=== PATIENT | female | born 1955 | race Caucasian/White ===

== ENCOUNTER → 2020-06-10 10:45 | Outpatient (CLI) | payer OTHER, SELFPAY ==
--- NOTE | ~2020-06-10 | XR_ITS ---
EXAMINATION: XR knee LT min 4V DATE: 06/10/2020 11:00 INDICATION: Left knee pain. TECHNIQUE: 4 views of left knee were obtained. COMPARISON: Left knee radiographs 08/28/2015 FINDINGS: Bone alignment is normal. No fracture. There is moderate osteoarthritis of medial and sahni lofemoral compartments and mild osteoarthritis of lateral compartment. No knee joint effusion. IMPRESSION: 1. Moderate left knee osteoarthritis. Reviewed, dictated and finalized at location A. ING MACHINE OPERATOR
--- NOTE | ~2020-06-10 | XR_ITS ---
EXAMINATION: XR knee RT min 4V DATE: 06/10/2020 11:00 INDICATION: Right knee pain. TECHNIQUE: 4 views of right knee were obtained. COMPARISON: Right knee radiographs 03/12/2014 FINDINGS: There is varus angulation at the knee. No fracture. There is severe osteoarthritis of media l and patellofemoral compartments and mild osteoarthritis of lateral compartment. There is a small kn ee joint effusion. IMPRESSION: 1. Severe right knee osteoarthritis. 2. Small right knee joint effusion. Reviewed, dictated and finalized at location A. TECHNIC REGISTRAR
== END ==
PROVIDERS: PCP Family Medicine; Visit Provider Physician Assistant
DX: M17.0 Bilateral primary osteoarthritis of knee (principal); M25.461 Effusion, right knee
CPT/HCPCS: 73564

== ENCOUNTER 2022-04-02 20:59 | Emergency (ER) | payer MEDICARE, OTHER, SELFPAY ==
--- NOTE | ~2022-04-02 | XR_ITS ---
EXAMINATION: XR wrist RT min 3V DATE: 04/02/2022 21:56 INDICATION: Right wrist pain post fall TECHNIQUE: Posteroanterior, ulnar deviation, oblique, and lateral views of the right wrist were obtai jason. COMPARISON: none FINDINGS: Comminuted fractures at the distal right radius with dorsal impaction resulting in 15 degrees dorsal tilt of the distal articular surface. There is suggestion of intra-articular extension with likely sm all fracture fragment projecting over the junction of the joint space at the and radiocarpal and scap holunate articulations. No evident fracture gap or incongruity at the distal radial articular surface . Minimally displaced fracture across the base of the ulnar styloid process. Severe osteoarthritis at the first carpometacarpal joint. Mild osteoarthritis at the triscaphe joint. Moderate osteoarthritis at several of the visualized interphalangeal joints. IMPRESSION: 1. Dorsal impaction of a comminuted likely intra-articular fracture of the distal right radius. 2. Minimally displaced ulnar styloid avulsion fracture. 3. 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 Reviewed, dictated and finalized at location A. ELER HEAD IMPRESSION: 1. Dorsal impaction of a comminuted likely intra-articular fracture of the dist al right radius. 2. Minimally displaced ulnar styloid avulsion fracture. 3. 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
[2022-04-02 21:08] VITALS: BP 161/85; PULSE 95; RESP 22; TEMP 37; O2SAT 97
[2022-04-02 23:26] VITALS: BP 142/75; PULSE 86; RESP 16; O2SAT 98
--- NOTE | 2022-04-03 06:40 | ED.GENADULT ---
HPI - General Adult General Chief complaint: Extremity Injury, Upper Stated complaint: right wrist pain, fall Time Seen by Provider: 04/03/22 06:26 History of Present Illness HPI narrative: 66-year-old female presenting to the emergency department for evaluation of an injury to her right wrist. Patient reports she was attempting to get sugar out of the cupboard when she fell and injured her right wrist. Patient does complain of pain of the right wrist but denies any other pain or injury. Patient states she did not strike her head denies any loss of consciousness. Related Data Home Medications Medication Instructions Recorded Confirmed Bifidobacterium infantis 4 mg 4 mg PO DAILY 02/18/19 07/09/21 capsule (Align) cetirizine 10 mg tablet (Zyrtec) 10 mg PO DAILY PRN 07/30/20 07/09/21 cholecalciferol (vitamin D3) 50 50 mcg PO BID 07/30/20 07/09/21 mcg (2,000 unit) tablet zinc sulfate 25 mg zinc (110 mg) 25 mg PO DAILY 07/30/20 07/09/21 tablet Allergies Allergy/AdvReac Type Severity Reaction Status Date / Time PROCHLORPERAZINE EDISYLATE Allergy Unknown Migraine Uncoded 04/03/22 06:44 Review of Systems Review of Systems: CONSTITUTIONAL: Denies fever, chills, or sweats. EYES: Denies visual changes, redness, or discharge. ENT: Denies rhinorrhea, congestion, sore throat, or otalgia. CARDIOVASCULAR: Denies chest pain, palpitations, or edema. RESPIRATORY: Denies cough or dyspnea. GASTROINTESTINAL: Denies abdominal pain, nausea, vomiting, or diarrhea. GENITOURINARY: Denies dysuria or hematuria. SKIN: Denies rash or itching. MUSCULOSKELETAL: Right wrist pain NEUROLOGIC: Denies headache, numbness, or weakness. [facility] Past Medical History Medical History C. difficile colitis Hepatitis C antibody test negative (08/18/18) Kidney stone (~1989) Kidney stone (~2008) Prediabetes Uterine polyp Surgical History Surgical History History of breast augmentation (~1983) History of colonoscopy (~04/20/09) Family History Family History Grandparent Diabetes mellitus Cerebrovascular accident Family history of lung cancer Family history of malignant neoplasm of ovary Father Hypertension Family history of coronary artery disease Social History Social History Second hand tobacco smoke exposure: No Alcohol intake: never Exam Narrative: APPEARANCE: Well appearing, no pain, no distress, well-nourished. HEAD: normocephalic, atraumatic. EYES: PERRLA/EOMI, conjunctivae clear. NOSE: Normal no drainage NECK: Supple. No adenopathy, no masses. RESPIRATORY: Airway patent, respirations nonlabored. Clear to auscultation bilaterally, no rales, rhonchi, wheezing. CARDIOVASCULAR: Regular rate and rhythm without murmurs rubs or gallops. ABDOMINAL: Soft, nontender, nondistended, normal bowel sounds MUSCULOSKELETAL: Right wrist tenderness to palpation. Neurovascular intact. Normal cap refill. NEURO: Alert. Cranial nerves II through XII intact. SKIN: Warm, dry. Normal Color Course Course Emergency Course: Patient was placed in a short arm splint for the distal radius fracture. Patient was encouraged of close follow-up with orthopedics. All question concerns were addressed. Patient was provided pain medication the emergency department was also provided pain medication for home. Vital Signs Vital signs: Vital Signs Temperature 98.6 F 04/02/22 21:08 Pulse Rate 95 04/02/22 21:08 Respiratory Rate 22 H 04/02/22 21:08 Blood Pressure 161/85 H 04/02/22 21:08 Pulse Oximetry 97 04/02/22 21:08 Temperature 98.6 F 04/02/22 21:08 Pulse Rate 86 04/02/22 23:26 Respiratory Rate 16 04/02/22 23:26 Blood Pressure 142/75 H 04/02/22 23:26 Pulse Oximetry 98 04/02/22 23:26 Medical Decision
[2022-04-03] MEDS: HYDROcodone/acetaminophen (*CRX) 5-325 MG TABLET 1 TAB PO (06:44)
[2022-04-03] MEDS: KETOROLAC 30 MG/ML VIAL (*BKC) IM (06:44)
== END 2022-04-03 07:36 | disposition home or self-care (01) ==
PROVIDERS: Emergency Provider Emergency Medicine; PCP Family Medicine
DX: S52.591A Other fractures of lower end of right radius, initial encounter for closed fracture (principal); S52.611A Displaced fracture of right ulna styloid process, initial encounter for closed fracture; Z87.442 Personal history of urinary calculi; R73.03 Prediabetes; M18.9 Osteoarthritis of first carpometacarpal joint, unspecified; M19.041 Primary osteoarthritis, right hand; W19.XXXA Unspecified fall, initial encounter
CPT/HCPCS: 29125; 73110; 96372; 99283; 99284; A9270; J1885

== ENCOUNTER 2022-04-06 09:44 | Outpatient (CLI) | payer MEDICARE, OTHER, SELFPAY ==
--- NOTE | 2022-04-06 09:58 | ECG_ITS ---
Measurements Intervals [place] Rate: 77 P: 24 ND: 169 QRS: 12 QRSD: 104 T: 1 QT: 401 QTc: 454 Interpretive Statements SINUS RHYTHM NO PREVIOUS ECG AVAILABLE FOR COMPARISON Electronically Signed On 04-06-2022 13:24:12 TURBINE ENGINE ASSEMBLER by Kilo Jimenez M.D.
[2022-04-06 10:54] LABS: Anion Gap 7 mmol/L (8-16); Blood Urea Nitrogen 18 mg/dL (7-17); Calcium 8.7 mg/dL (8.4-10.2); Carbon Dioxide 27 mmol/L (22-30); Chloride 104 mmol/L (98-107); Estimated Glomerular Filt Rate > 60; Glucose 103 mg/dL (65-110); Potassium 3.7 mmol/L (3.4-5.0); Sodium 138 mmol/L (137-145)
== END 2022-04-06 09:45 | disposition home or self-care (01) ==
PROVIDERS: Anesthesiology; PCP Family Medicine; Visit Provider Orthopaedic Surgery
DX: I10 Essential (primary) hypertension (principal); Z01.818 Encounter for other preprocedural examination
CPT/HCPCS: 36415; 80048; 93005

== ENCOUNTER 2022-04-08 01:47 | Day surgery (SDC) | payer MEDICARE, OTHER, SELFPAY ==
--- NOTE | 2022-04-05 13:39 | PC.NURSE ---
Report to the Outpatient Waiting Room, entrance under the green pavilion located off [facility], at time __729 on date 04/08/22 . Planned Procedure Time: __929 . Time changes happen often and if your time is changed the preop area will call you the afternoon before. - You and your visitor will be asked to self-screen and do not enter if you have any COVID symptoms. - Only one visitor is requested with a max of two and NO children visitors are allowed at this time. - The patient visitor may be requested to leave or wait in car when not with patient due to distancing restrictions. - A mask is optional within the hospital. Patients may have clear liquids (water, carbonated beverages, clear teas, apple juice) until 3 hours prior to surgery with a maximum of 20 ounces. - No food from midnight until time of surgery - Infants may have breast milk until 4 hours before surgery, infant formula 6 hours prior to surgery. - Children will be allowed to drink immediately following surgery. If applicable, please bring a bottle or sippy cup to assist with drinking. Juice, water, soda, and popsicles are readily available. For infants on formula, please bring formula the day of surgery. Pacifiers are allowed. Take the following medications with a SIP of water the morning of surgery: __AMLODIPINE Medications to discontinue per physician ____ALL VITAMINS AND SUPPLEMENTS 3 DAYS PRE OP LAST DOSE WAS 04/05/22 Please no make-up, nail latvian, hairspray, perfume, deodorant, or body powder the day of surgery. No jewelry (including any body piercings) or valuables the day of surgery, leave them at home. Please take a shower or bath the night before, or the morning of, surgery with an antibacterial soap. Wear comfortable, loose fitting clothing. Children are encouraged to wear pajamas. - Jewelry must be removed prior to entering the operating room. Rings and piercings that are not removed may be cut off. - The hospital will not accept responsibility for valuables. - Please leave all valuables, including medications, at home the day of surgery. If you are going home after surgery, a licensed local company flatbed truck driver must drive you home. - NO public transportation without another adult if you receive anesthesia. - We recommend that an adult stay with you for 24 hours following discharge. - We also recommend that you do not drive, make important decision, drink alcoholic beverages, or take any drugs that were not prescribed by your health care provider for at least 24 hours after your discharge time. Follow any additional instructions given to you from your surgeon. If you or anyone in your household have experienced Covid symptoms in the past week, please notify your surgeon or the nurse liaison at the phone number below for possible testing. Telephone instructions given to ___PATIENT and asked if any additional questions and then verbalized understanding. Patient advised to call surgeon office or pre surgery nurse liaison [phone] if any additional questions.
[2022-04-05 13:48] VITALS: BMI 37.6
[2022-04-08] VITALS (12 sets, daily range): BP systolic 99–148; BP diastolic 48–96; PULSE 80–100; RESP 10–18; TEMP 36.3–36.8; O2SAT 92–100
--- NOTE | ~2022-04-08 | XR_ITS ---
Right wrist Technique: PA and lateral views were obtained. Clinical History: Fracture, external fixation COMPARISON: 04/02/2022 Findings: There is been interval placement of external fixator extending from the hand to the distal forearm. Underlying transverse fracture the distal radius is present, unchanged from recent prior exa m. Minimally displaced fracture of the tip of the ulnar styloid process present. There is mild degene rative change of the first CMC joint. Joint spaces are preserved. Soft tissues are unremarkable. Impression: Status post external fixation hardware placement, as noted above. Underlying distal radial and ulnar styloid process fractures are essentially unchanged since 04/02/20 22. Reviewed, dictated and finalized at location M. ERER Impression: Status post external fixation hardware placement, as noted above. Underlying distal radial and ulnar styloid process fractures are essentially un changed since 04/02/2022.
--- NOTE | ~2022-04-08 | XR_ITS ---
EXAMINATION: XR surgery orthopedic DATE: 04/08/2022 11:25 INDICATION: ORIF versus external fixation of a right wrist fracture TECHNIQUE: 2 fluoroscopic images of the right wrist were obtained during procedure performed by Dr. Fidelina prescott. Radiologist was not present for the imaging or procedure. The amount of fluoroscopy time used du ring this procedure was 0.2 minutes. COMPARISON: 04/02/2022 FINDINGS: Interval reduction and external fixation of a comminuted likely intra-articular fracture of the dista l right radius with fixation screw extending across the proximal metadiaphyseal region of the second metacarpal. The prior dorsal angulation has improved with now one degree volar tilt of the distal art icular surface. The ulnar styloid avulsion fracture remains minimally displaced. No other fractures i dentified. Osteoarthritis at the triscaphe and first carpal metacarpal joints. IMPRESSION: 1. Comminuted potentially intra-articular fracture of the distal right radius with significant improv ement of the prior dorsal angulation with partial tilt of the distal articular surface, now measuring 1 degree volar tilt, post reduction and external fixation. 2. Unchanged minimally displaced ulnar styloid avulsion fracture. Reviewed, dictated and finalized at location A. ICAL LATHE OPERATOR IMPRESSION: 1. Comminuted potentially intra-articular fracture of the distal right radius w ith significant improvement of the prior dorsal angulation with partial tilt of the distal articular surface, now measuring 1 degree volar tilt, post reductio n and external fixation. 2. Unchanged minimally displaced ulnar styloid avulsion fracture.
[2022-04-08] MEDS: ACETAMINOPHEN 500 MG TABLET 1000 MG PO (08:08)
[2022-04-08] MEDS: KETOROLAC 15 MG/ML VIAL (*BKC) IV PUSH (08:37)
--- NOTE | 2022-04-08 09:12 | WPDHPUPDATE1 ---
History and Physical Update Update Date/Time: 04/08/22 09:12 History and Physical has been reviewed, including an updated exam of the patient. There are NO changes in the patient's condition. Risks, benefits, and alternatives have been discussed and questions answered. Patient agrees to proceed with procedure.
[2022-04-08] MEDS: LACTATED RINGERS 1,000 ML 30 ML IV CONT ×2 (09:20→13:21)
--- NOTE | 2022-04-08 09:20 | SUR.PREOP ---
0915 dr sumner at side and removed right splint.
--- NOTE | 2022-04-08 09:52 | SUR.PREOP ---
pt informed of delay in procedure.
--- NOTE | 2022-04-08 10:04 | WPDANESEPPF ---
Anes - Initial Pre Proc Eval Procedure: Operation Date: 04/08/22 09:30 Proposed Procedures p Open Reduction Internal Fixation Versus External Fixation Right Distal Radius Fracture - Jonas Garrett MD Date/Time: 04/08/22 10:04 Surgeon: Jonas Garrett MD Pre Op Diagnosis: right distal radius fracture Patient Data Age: 66 Gender: F Height: 1.57 m Weight: 94.8 kg Last Vital Signs Temp 98.3 F 04/08/22 07:37 Pulse 80 04/08/22 07:37 Resp 16 04/08/22 07:37 BP 148/69 H 04/08/22 07:37 Pulse Ox 99 04/08/22 07:37 O2 Del Method Room Air 04/08/22 07:37 Allergies Allergy/AdvReac Type Severity Reaction Status Date / Time prochlorperazine Allergy Severe claustropho Verified 04/08/22 07:58 [From Compazine] christopher Home Medications Medication Instructions Recorded Confirmed Type Bifidobacterium infantis 4 mg 4 mg PO DAILY 02/18/19 04/08/22 History capsule (Align) cholecalciferol (vitamin D3) 50 50 mcg PO BID 07/30/20 04/08/22 History mcg (2,000 unit) tablet zinc sulfate 25 mg zinc (110 mg) 25 mg PO DAILY 07/30/20 04/08/22 History tablet naproxen 500 mg tablet See Rx Instructions .Route 12/17/21 04/08/22 Rx .COMPLEX #60 tabs amlodipine 5 mg tablet See Rx Instructions .Route 03/14/22 04/08/22 Rx .COMPLEX #90 tabs hydrochlorothiazide 12.5 mg tablet See Rx Instructions .Route 03/14/22 04/08/22 Rx .COMPLEX #90 tabs hydrocodone 5 mg-acetaminophen 325 1 tablet PO Q8H PRN pain #14 tabs 04/03/22 04/08/22 Rx mg tablet ascorbic acid (vitamin C) 1,000 mg 1,000 mg PO DAILY 04/05/22 04/08/22 History tablet multivitamin 1 tablet PO DAILY 04/05/22 04/08/22 History omega-3 fatty acids 1,000 mg PO DAILY 04/05/22 04/08/22 History fexofenadine 180 mg tablet 180 mg PO DAILY 04/06/22 04/08/22 History Patient hx anesthesia problems: none Family hx anesthesia problems: none Results Review: All pre-operative results and documents have been reviewed as part of the pre-operative evaluation. ON LICENSE OF [facility] Past Medical History Medical History (Updated 04/06/22 @ 09:39 by Jonas Garrett MD) C. difficile colitis Hepatitis C antibody test negative (08/18/18) History of kidney stones Kidney stone (~1989) Kidney stone (~2008) Nondisplaced fracture of right ulna styloid process, initial encounter for closed fracture Prediabetes Uterine polyp Surgical History Surgical History History of breast augmentation (~1983) History of colonoscopy (~04/20/09) Family History Family History Grandparent Diabetes mellitus Cerebrovascular accident Family history of lung cancer Family history of malignant neoplasm of ovary Father Hypertension Family history of coronary artery disease Mother Cerebrovascular accident Dementia Social History Social History Smoking status: Never smoker Second hand tobacco smoke exposure: No Alcohol intake: never Substance use type: does not use Living arrangements: with family 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 Informed Consent: The patient's anesthetic plan and its attendant risks and benefits were discussed with the patient/family/POA. Questions were solicited and answers provided to the
[2022-04-08] MEDS: ceFAZolin 2 GM/D5W 50 ML 2 GM/50 ML BAG IVPB (10:21)
[2022-04-08] MEDS: BUPIVACAINE HCL 0.5% PF 30 ML VIAL 10 ML INFILTRATE (10:49)
--- NOTE | 2022-04-08 11:33 | W.PM.PROC2 ---
Procedure Note - Detailed Date of Procedure 04/08/22 Pre-op Diagnosis comminuted right distal radius fracture with ulnar styloid fracture Post-op Diagnosis Same Procedure Performed close reduction comminuted right distal radius fracture with application of Uni plane external fixator Surgeon Jonas Garrett MD Monorail Crane Operator Hank Anesthesia General Description of Procedure The patient was identified site identified. She was taken to the operating room and transferred to the OR table placing her supine taking care to pad and position her torso and extremities. After general anesthetic induction and intubation, a nonsterile tourniquet was placed high in the right arm. The right upper extremity was prepped and draped in usual sterile fashion. Fluoroscopically the fracture was examined under traction. There was a large number of small fragments extremely distally just under the articular surface and intra-articular extension was noted as well. Because of this the decision was made to use the external fixator rather than the volar plate. The extremity was exsanguinated and tourniquet inflated to 250 millimeters mercury remaining up for about 28 minutes. Over the second metacarpal shaft as well as the distal radial diaphysis incisions were made. Subcutaneous tissue in each area was retracted allowing for access to the bone. Using the targeting device from the [employer] external fixator set, two fixator pins were placed each of the second metacarpal and the radial shaft under fluoroscopic visualization. Once this was accomplished, the wounds were irrigated with sterile saline skin edges reapproximated with 4-0 nylon suture. Traction was applied to the upper extremity holding the fracture reduced. In this position the fixator was secured. Length, inclination, and neutral tilt were able to be achieved with this. Tourniquet was released. Sterile dressing was applied. Patient tolerated the procedure well. She was awakened, extubated taken to recovery area in stable condition. There were no known intraoperative complications. Estimated blood loss was negligible. She received perioperative antibiotics. Estimated Blood Loss 4 Tourniquet Time 28 Drains No Packing No Pathology None sent Complications No immediate complications Condition Stable Disposition PACU [facility] Billing Surgery - Charge Forward: Surgery Billing ( Fracture care for the distal radius and ulna plus application of a Uni-plane external fixator: 12945; intraoperative diagnostic imagin)
[2022-04-08] MEDS: fentaNYL CITRATE INJ (*CRX) 100 MCG/2 ML VIAL 25 MCG IV PUSH ×8 (11:35→12:20)
[2022-04-08] MEDS: HYDROmorphone HCL INJ (*CRX) 1 MG/ML SYR 0.5 MG IV PUSH ×4 (12:31→13:04)
[2022-04-08] MEDS: ONDANSETRON INJ 4 MG/2 ML VIAL IV PUSH (13:21)
[2022-04-08] MEDS: diphenhydrAMINE HCl INJ 50 MG/ML VIAL 12.5 MG IV PUSH (13:47)
--- NOTE | 2022-04-08 14:28 | SUR.PHASEII ---
DR PERDOMO IN PATIENT ROOM DISCUSSING OPTIONS FOR NAUSEA
== END 2022-04-08 14:38 | disposition home or self-care (01) ==
PROVIDERS: PCP Family Medicine; Visit Provider Orthopaedic Surgery
PROC: (CPT 25575; principal; 2022-04-08 09:30)
DX: S52.571A Other intraarticular fracture of lower end of right radius, initial encounter for closed fracture (principal); S52.614A Nondisplaced fracture of right ulna styloid process, initial encounter for closed fracture; W19.XXXA Unspecified fall, initial encounter; E66.9 Obesity, unspecified; Z68.38 Body mass index [BMI] 38.0-38.9, adult
CPT/HCPCS: 25605; 20690; 73100; 99199; A9270; J0690; J1100; J1170; J1200; J1885; J2250; J2405; J2704; J3010; J7120

== ENCOUNTER 2022-08-29 13:30 | Outpatient (RCR) | payer MEDICARE, OTHER, SELFPAY ==
--- NOTE | 2022-06-06 14:16 | OTOPEVAL1 ---
Assessment and note entered by Nader Oviedo, SUMMERR/Tiki, CHT Evaluation Information Assessment Status Evaluation Diagnosis Right distal radius fracture Subjective Information s/p closed reduction and external fixation , fixator removal 06/02/22 Patient comes in today wearing a removable wrist brace. States she is allowed to remove the brace for showers, but when she takes the brace off her wrist just flops and that made her very uncomfortable, so she has been leaving it on. She is very guarded and fearful to move the UE. Walks with she shoulder shrugged, arm adducted, and the elbow flexed. Reported Pain Level Pain Score 2,2: Self Report Assessment OT Clinical Summary Patient referred to outpatient OT following a right distal radius fracture that is s/p closed reduction and external fixation. The external fixation was removed 4 days ago. 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 She will benefit from skilled OT for HEP instruction and progression, functional therapeutic exercise and activities, manual therapy, and modalities to facilitate optimal functional use of the right hand/UE. Plan of Care Interventions Therapeutic Exercise,Manual Therapy,Neuro Re- education,Therapeutic Activities,Hot Pack/Cold Pack,Electrical Stimulation,Ultrasound,Paraffin OT Services Indicated Yes Treatment Frequency and 3x/week for 3 weeks Duration then 2-3x/week for 3 weeks These treatments will address the objective and functional deficits as defined above. The patient will be advanced safely and appropriately in order for the patient to progress towards his/her prior level of function. Additional exercises will be introduced and as well as a comprehensive home exercise program upon discharge, if needed, ?to ensure carryover of functional gains achieved in the clinic. This treatment plan has been reviewed and agreement upon by the patient.
--- NOTE | 2022-06-17 15:41 | PCOTNOTE ---
Late note for 06/15/22 - Patient's scheduled treatment was cancelled due to therapist calling off sick.
--- NOTE | 2022-06-27 15:59 | OTOPPROG ---
Assessment and note entered by Nader Oviedo, NANI/Tiki, CHT Evaluation Information Assessment Status Progress Diagnosis Right distal radius fracture Subjective Information s/p closed reduction and external fixation , Pin removal 06/02/22 Patient reports improvements with functional ROM - noting being able to now move the wrist and bend the fingers better. She reports continuing to have difficulties with supination, reporting pain on the ulnar side of the wrist when attempting to rotate the forearm. She is feeling more comfortable being out of the splint when showering and doing her exercises. She is noting that her shoulder pain continues to limit functional use of the arm. We have been working on some shoulder ROM/stretches with limited progress as time is most focused on the forearm/wrist/hand. In general - she is much less guarded when moving the right arm. She is getting out of the protected position with the arm adducted and internally rotated at her side at all times. She is weaning out of the wrist brace this week. She is eager to get back to driving. Assessment OT Clinical Summary Patient referred to outpatient OT following a right distal radius fracture that is s/p closed reduction and exteral fixation. She has been attending outpatient OT 3x/week for 3 weeks. Progress noted in functional ROM of all joints of the right UE. She continues to have right shoulder pain that is limiting - concerned for frozen shoulder - will be contacting MD regarding PT order for the shoulder. She continues to have severe limitations with forearm rotation, wrist motion, and finger flexion due to residual stiffness and weakness. Continued skilled OT indicated for HEP progression, functional therapeutic exercise and activities, manual therapy, and modalities to facilitate optimal functional use of the right hand/UE. Plan of Care Interventions Therapeutic Exercise,Manual Therapy,Neuro Re- education,Therapeutic Activities,Hot Pack/Cold Pack,Electrical Stimulation,Ultrasound,Paraffin OT Services Indicated Yes Treatment Frequency and 2x/week for 4 weeks Duration These treatments will address the objective and functional deficits as defined above. The patient wi
--- NOTE | 2022-07-06 14:03 | PTOPEVAL1 ---
Assessment and note entered by Burak Cuevas, PT Evaluation Information Assessment Status Evaluation Diagnosis R shoulder pain Subjective Information Patient has had decreased range of motion in her R shoulder since surgery on the lower portion of her R arm. She reports she is having trouble with getting dressed, doing her hair, and sleeping. She knows she needs to move her arm more, but still is nervous so guards it. Assessment PT Clinical Summary Kristine is a 67 year old female coming into the clinic for R shoulder pain and stiffness. She was previously seeing OT for the shoulder, but has enough to work on with the hand, wrist, and elbow. Patient has decreased R shoulder range of motion compared to the L shoulder. Physical therapy will work on the range of motion along with scapular strengthening and posture. Plan of Care Interventions Electrical Stimulation,Gait Training,Hot Pack/Cold Pack,Manual Therapy,Neuro Re-education,Patient/ Caregiver Education,Therapeutic Activities, Therapeutic Exercise,Ultrasound Other Interventions taping PT Services Indicated Yes Treatment Frequency and 2x/wk for 4 weeks Duration These treatments will address the objective and functional deficits as defined above. The patient will be advanced safely and appropriately in order for the patient to progress towards his/her prior level of function. Additional exercises will be introduced and as well as a comprehensive home exercise program upon discharge, if needed, ?to ensure carryover of functional gains achieved in the clinic. This treatment plan has been reviewed and agreement upon by the patient.
--- NOTE | 2022-08-01 15:48 | OTOPPROG ---
Assessment and note entered by Nader Oviedo, NANI/Tiki, CHT Evaluation Information Assessment Status Progress Diagnosis Right distal radius fracture Subjective Information s/p closed reduction and external fixation , Pin removal 06/02/22 Kristine is reporting improved strength to be able to crab picker items. She is back to driving and being able to shift her car. Able to use a nail clipper with the right hand now. She has been using her right arm to clean and do some cooking. She is now able to crack an egg with the right hand. She is still using a fork/spoon with her left hand, but is able to do finger foods/a sandwich with the right hand. She is still heavily favoring her left arm due to residual stiffness and pain. She is opening/manipulating her makeup again. 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 She reports her shoulder limits her with the lifting. PT has been addressing the right shoulder pain. ROM and strength are improving in the right elbow through hand. Forearm supination improved from neutral to 30 degrees. Wrist flexion and extension improved [address]. Finger flexion improved from having a 7 cm gap between the finger tips and palm to 3-5 cm gap. The PIPs are flexing 20-30 degrees better and the DIPs are now bending and no longer have a hard end feel. She is very compliant with all materials. Assessment OT Clinical Summary Patient referred to outpatient OT following a right distal radius fracture that is s/p closed reduction and external fixation. Progress noted in functional ROM of all joints of the right UE and she is able to use her right hand for more ADL tasks. She continues to have residual limitations with forearm rotation, wrist motion, and finger flexion due to stiffness and weakness. Continued skilled OT indicated for HEP progression, functional therapeutic exercise and activities, manual therapy, and modalities to facilitate optimal functional use of the right hand/UE. Plan of Care Interventions Therapeutic Exercise,Manual Therapy,Neuro Re- education,Therapeutic
--- NOTE | 2022-08-01 16:30 | PTOPPROG ---
Assessment and note entered by Burak Cuevas, PT Evaluation Information Assessment Status Progress Diagnosis Shoulder pain Subjective Information Patient reports that she feels she is making progress with the shoulder, besides with abduction . Assessment PT Clinical Summary Kristine is a 67 year old female coming into the clinic for R shoulder pain. She has improved her flexion by 25 degrees and external rotation by 30 degrees, but no improvement in abduction. 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 Recommend continued work on the shoulder Plan of Care Interventions Electrical Stimulation,Gait Training,Hot Pack/Cold Pack,Manual Therapy,Neuro Re-education,Patient/ Caregiver Education,Therapeutic Activities, Therapeutic Exercise,Ultrasound Other Interventions cupping, taping, IASTM PT Services Indicated Yes Treatment Frequency and 2x/wk for 4 weeks Duration These treatments will address the objective and functional deficits as defined above. The patient will be advanced safely and appropriately in order for the patient to progress towards his/her prior level of function. Additional exercises will be introduced and as well as a comprehensive home exercise program upon discharge, if needed, ?to ensure carryover of functional gains achieved in the clinic. This treatment plan has been reviewed and agreement upon by the patient.
--- NOTE | 2022-08-29 13:32 | OTOPDC ---
Assessment and note entered by Nader Oviedo, OTR/Tiki, CHT Evaluation Information Assessment Status Discharge Diagnosis Right distal radius fracture Subjective Information s/p closed reduction and external fixation , Pin removal 06/02/22 Kristine is reporting improved functional use of the right UE. Reporting that she is doing more in the kitchen, able to cut meat now, and using the right hand to clean/wipe down surfaces. With more fine motor tasks, such as writing and holding a fork, continue to be difficult due to residual stiffness, but she is trying to use her hand for these tasks as able. 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 ROM and strength are improving in the right elbow through hand. Forearm supination improved from 30 degrees to 45 degrees. Wrist flexion and extension improved [address], now measuring WFL. Finger flexion improved from having a 3-5 cm gap between the finger tips and palm to 1- 4 cm gap. The PIPs are flexing another 5 degrees better, measuring 35-70 degrees flexion. DIPs are now bending and no longer have a hard end feel. DIPs improved from 5 degrees to 25 degrees. 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 She is very compliant with all materials. We reviewed her HEP in depth and she is independent with all exercises . Reported Pain Level Pain Score 1,2: Self Report Additional Pain Score Comments Patient reporting right wrist and hand pain consistently at 1-2/10 with use. Pain does get to 0/10 with rest. Assessment OT Clinical Summary Patient referred to outpatient OT following a right distal radius fracture that is s/p closed reduction and external fixation. Patient continues to progress with functional ROM and strength of the right forearm, wrist, and hand. Progress has been slow due to OA affecting the flexibility of the joints. We have reviewed her HEP in depth and she is independent with all materials. She has reached her maximum therapy benefit at this time. It is recommended that she [id number] to work on her HEP. She is in agreement with discharge. Plan of Care OT Services Indicated No
--- NOTE | 2022-08-29 14:12 | PTOPDC ---
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 Not consistently doing her pulleys. Reported Pain Level Pain Score 2: Self Report Pain Score 1,2: Self Report Additional Pain Score Comments at worst shoulder pain in the last week Additional Pain Score Comments Patient reporting right wrist and hand pain consistently at 1-2/10 with use. Pain does get to 0/10 with rest. Assessment PT Clinical Summary Kristine is a 67 year old female coming into the clinic with a diagnosis of R shoulder pain. She has met her pain goal and is returning to work. She has met her external rotation and abduction range of motion goals and improved her shoulder flexion 15 degrees. At this time recommend discharge with HEP and pulleys. Patient appears motivated and do not see her backsliding Plan of Care PT Services Indicated No
== END 2022-08-29 14:27 | disposition home or self-care (01) ==
LOC: ANHPT 13:30
PROVIDERS: PCP Family Medicine; Visit Provider Orthopaedic Surgery
DX: S52.615D Nondisplaced fracture of left ulna styloid process, subsequent encounter for closed fracture with routine healing (principal); S52.501D Unspecified fracture of the lower end of right radius, subsequent encounter for closed fracture with routine healing
CPT/HCPCS: 97014; 97018; 97110; 97112; 97140; 97161; 97165; 97530; G0283; L3906

== ENCOUNTER → 2022-10-04 17:00 | Outpatient (CLI) | payer MEDICARE, OTHER, SELFPAY ==
--- NOTE | ~2022-10-04 | XR_ITS ---
EXAM: XR wrist RT min 3V DATE: 10/04/2022 17:12 HISTORY: S52.571D-Other intraarticular fracture of lower end of ... . COMPARISON: 08/24/2022. FINDINGS: Decreased mineralization. Old distal radial fracture No acute fracture or dislocation. No lytic or blastic lesion. Ulnar positive variance. Degenerative subchondral cysts in the adjacent margy te. Moderate scattered arthritic changes. No erosion or periosteal change. Soft tissues within normal limits. IMPRESSION: Osteopenia. Polyarticular osteoarthritis. Old distal radial fracture. Reviewed, dictated and finalized at location K. IMPRESSION: Osteopenia. Polyarticular osteoarthritis. Old distal radial fractur e.
== END ==
PROVIDERS: PCP Family Medicine; Visit Provider Orthopaedic Surgery
DX: S52.571D Other intraarticular fracture of lower end of right radius, subsequent encounter for closed fracture with routine healing (principal); X58.XXXD Exposure to other specified factors, subsequent encounter; M19.031 Primary osteoarthritis, right wrist; M85.831 Other specified disorders of bone density and structure, right forearm
CPT/HCPCS: 73110

== ENCOUNTER 2023-10-10 16:51 | Outpatient (CLI) | payer MEDICARE, OTHER, SELFPAY ==
--- NOTE | ~2023-10-10 | MM_ITS ---
EXAMINATION: MM screening mammo implant BI HISTORY: Screening mammogram TECHNIQUE: Craniocaudal and mediolateral oblique 3-D tomosynthesis images with implant displacement a nd synthetic 2-D images were generated. Craniocaudal and mediolateral oblique views of the breasts wi thout implant displacement were obtained using full field digital mammography. CAD analysis was submi tted and interpreted. COMPARISON: 02/09/2015 BREAST PARENCHYMAL COMPOSITION: The breasts are heterogeneously dense, which may obscure small masses . FINDINGS: There is no evidence of suspicious mass, calcification, or architectural distortion to sugg est malignancy in either breast. There has been no suspicious interval change. IMPRESSION: No mammographic evidence of malignancy. Recommend routine screening mammography in one year. BI-RADS Category 1: Negative Reviewed, dictated and finalized at location .
== END 2023-10-10 16:52 | disposition home or self-care (01) ==
LOC: ANHIMG 16:53
PROVIDERS: PCP Family Medicine; Visit Provider Family Medicine
DX: Z12.31 Encounter for screening mammogram for malignant neoplasm of breast (principal)
CPT/HCPCS: 77067

== ENCOUNTER 2024-03-25 00:53 | Day surgery (SDC) | payer MEDICARE, OTHER, SELFPAY ==
[2024-03-13 15:37] VITALS: BMI 35.4
--- NOTE | 2024-03-25 07:39 | P.PNAN_ITS ---
Anes - Initial Pre Proc Eval Procedure: Operation Date: 03/25/24 08:30 Proposed Procedures p Screening Colonoscopy - Black Holt MD Date/Time: 03/25/24 07:39 Surgeon: Black Holt MD Pre Op Diagnosis: Neoplasm screening Patient Data Age: 68 Gender: F Height: 1.57 m Weight: 88 kg Allergies Allergy/AdvReac Type Severity Reaction Status Date / Time prochlorperazine (From Allergy Severe claustropho Verified 03/25/24 07:39 Compazine) christopher Home Medications ?Medication ?Instructions ?Recorded ?Confirmed ?Type cholecalciferol (vitamin D3) 50 50 mcg PO BID 07/30/20 03/13/24 History mcg (2,000 unit) tablet zinc sulfate 25 mg zinc (110 mg) 25 mg PO DAILY 07/30/20 03/13/24 History tablet ascorbic acid (vitamin C) 1,000 mg 1,000 mg PO DAILY 04/05/22 03/13/24 History tablet multivitamin 1 tablet PO DAILY 04/05/22 03/13/24 History hydrochlorothiazide 12.5 mg tablet 12.5 mg PO DAILY #90 tabs 12/28/23 03/13/24 Rx amlodipine 5 mg tablet 5 mg PO DAILY 03/13/24 03/13/24 History cetirizine 10 mg tablet (Zyrtec) 10 mg PO DAILY 03/13/24 03/13/24 History Patient hx anesthesia problems: none Family hx anesthesia problems: none Results Review: All pre-operative results and documents have been reviewed as part of the pre- operative evaluation. [facility] Past Medical History Medical History C. difficile colitis Hepatitis C antibody test negative (08/18/18) History of kidney stones Kidney stone (~1989) Kidney stone (~2008) Prediabetes Uterine polyp Surgical History Surgical History Closed fracture of right distal radius Application external fixator April 08, 2022 History of breast augmentation (~1983) History of colonoscopy (~04/20/09) Family History Family History Grandparent Diabetes mellitus Cerebrovascular accident Family history of lung cancer Family history of malignant neoplasm of ovary Father Hypertension Family history of coronary artery disease Mother Cerebrovascular accident Dementia Social History Social History Smoking status: Never smoker Second hand tobacco smoke exposure: No Alcohol intake: never Substance use: never Substance use type: does not use Lack of Transportation: No Lack of Food: Never True Current Housing: I Have Housing Concerned About Future Housing: No Difficulty Paying Gas/Electric Bills: No Difficulty Paying for Meds: No Currently Unemployed: No Education: High School Diploma/GED Difficulty w/ Childcare or Family Care: No Living arrangements: with family 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 Informed Consent: The patient's anesthetic plan and its attendant risks and benefits were discussed with the patient/family/POA. Questions were solicited and answers provided to the satisfaction of the patient/family/POA. Patient states using CPAP everynight.
[2024-03-25 07:40] VITALS: BP 144/65; PULSE 80; RESP 18; TEMP 35.9; O2SAT 98
[2024-03-25] MEDS: LACTATED RINGERS 1,000 ML 150 ML IV CONT (07:52)
--- NOTE | 2024-03-25 07:59 | PM.IMHP ---
H&P: HPI History of Present Illness Date/Time: 03/25/24 07:59 Chief Complaint: Screening colonoscopy Narrative: This is the patient's second colonoscopy after more than 10 years. There are no GI symptoms and there is no family history of colorectal cancer. Review of Systems Review of Systems: All systems reviewed & are unremarkable except as noted in HPI and below PMFSH Past Medical History Medical History C. difficile colitis Hepatitis C antibody test negative (08/18/18) History of kidney stones Kidney stone (~1989) Kidney stone (~2008) Prediabetes Uterine polyp Surgical History Surgical History Closed fracture of right distal radius Application external fixator April 08, 2022 History of breast augmentation (~1983) History of colonoscopy (~04/20/09) Family History Family History Grandparent Diabetes mellitus Cerebrovascular accident Family history of lung cancer Family history of malignant neoplasm of ovary Father Hypertension Family history of coronary artery disease Mother Cerebrovascular accident Dementia Social History Social History Smoking status: Never smoker Second hand tobacco smoke exposure: No Alcohol intake: never Substance use: never Substance use type: does not use Lack of Transportation: No Lack of Food: Never True Current Housing: I Have Housing Concerned About Future Housing: No Difficulty Paying Gas/Electric Bills: No Difficulty Paying for Meds: No Currently Unemployed: No Education: High School Diploma/GED Difficulty w/ Childcare or Family Care: No Living arrangements: with family 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 Gender identity (if verbalized by the patient): Female Spiritual care concerns: No Meds Home Medications and Allergies Home Medications ?Medication ?Instructions ?Recorded ?Confirmed ?Type cholecalciferol (vitamin D3) 50 50 mcg PO BID 07/30/20 03/25/24 History mcg (2,000 unit) tablet zinc sulfate 25 mg zinc (110 mg) 25 mg PO DAILY 07/30/20 03/25/24 History tablet ascorbic acid (vitamin C) 1,000 mg 1,000 mg PO DAILY 04/05/22 03/25/24 History tablet multivitamin 1 tablet PO DAILY 04/05/22 03/25/24 History hydrochlorothiazide 12.5 mg tablet 12.5 mg PO DAILY #90 tabs 12/28/23 03/25/24 Rx amlodipine 5 mg tablet 5 mg PO DAILY 03/13/24 03/25/24 History cetirizine 10 mg tablet (Zyrtec) 10 mg PO DAILY 03/13/24 03/25/24 History Allergies Allergy/AdvReac Type Severity Reaction Status Date / Time prochlorperazine (From Allergy Severe claustropho Verified 03/25/24 07:39 Compazine) christopher Vital Signs Vital Signs - 24 hr 03/25/24 07:40 Temperature 96.7 F L Pulse Rate 80 Respiratory Rate 18 Blood Pressure 144/65 H Pulse Oximetry 98 Oxygen Delivery Room Air Assessment and Plan Assessment and plan (1) Screening for colon cancer: Code(s): Z12.11 - Encounter for screening for malignant neoplasm of colon Status: Acute Assessment and Plan: The patient is deemed a good candidate for the procedure. Consent signed. Will proceed.
[2024-03-25 08:54] VITALS: BP 102/52; PULSE 75; RESP 20; O2SAT 98
[2024-03-25 09:04] VITALS: BP 109/49; PULSE 76; RESP 19; O2SAT 99
[2024-03-25 09:14] VITALS: BP 109/49; PULSE 72; RESP 18; O2SAT 100
== END 2024-03-25 09:20 | disposition home or self-care (01) ==
PROVIDERS: PCP Family Medicine; Visit Provider Internal Medicine Gastroenterology
PROC: 0DJD8ZZ Inspection of Lower Intestinal Tract, Via Natural or Artificial Opening Endoscopic (ICD-10-PCS; CPT 45378; principal; 2024-03-25 08:30)
DX: Z12.11 Encounter for screening for malignant neoplasm of colon (principal); K57.30 Diverticulosis of large intestine without perforation or abscess without bleeding; E66.9 Obesity, unspecified; Z68.36 Body mass index [BMI] 36.0-36.9, adult
CPT/HCPCS: G0121; J7120

== ENCOUNTER 2024-11-04 19:46 | Emergency (ER) | payer MEDICARE, OTHER, SELFPAY ==
--- NOTE | 2024-11-04 19:50 | ED_ITS ---
HPI - Eye Problem General Chief complaint: Eye Problems Stated complaint: Blood in rt eye Time Seen by Provider: 11/04/24 20:00 Source: patient and RN notes reviewed Mode of arrival: ambulatory Limitations: no limitations History of Present Illness HPI Narrative: 69-year-old female presents with concern for this to the corner of her right eye. Reports she noticed it today. Reports her lower eyelid felt slightly tender to touch today and then she noticed the redness. She denies any drainage, pain, itchiness. She reports she did sneeze 3 times and she hold her nose when she sneezes. She denies any vision changes, floaters, pressure. She denies cold symptoms. MD chief complaint: eye redness Related Data Allergies Allergy/AdvReac Type Severity Reaction Status Date / Time prochlorperazine (From Allergy Severe claustropho Verified 11/04/24 19:58 Compazine) christopher Review of Systems Review of Systems: CONSTITUTIONAL: Denies malaise, chills, sweats, or fever. EYES: Denies visual changes. Reports to the corner of the right eye redness. Denies pain, irritation, discharge. ENT: Denies rhinorrhea, congestion, sinus pain, otalgia or sore throat. SKIN: Denies rash or itching. NEUROLOGIC: Denies numbness, weakness, or headache. PSYCHIATRIC: Denies anxiety or depression. All systems reviewed & are unremarkable except as noted in HPI and below PMFSH Past Medical History Medical History History of kidney stones C. difficile colitis Hepatitis C antibody test negative (08/18/18) Prediabetes Uterine polyp Kidney stone (~2008) Kidney stone (~1989) Surgical History Surgical History Closed fracture of right distal radius Application external fixator April 08, 2022 History of breast augmentation (~1983) History of colonoscopy (~04/20/09) Family History Family History Grandparent Diabetes mellitus Cerebrovascular accident Family history of lung cancer Family history of malignant neoplasm of ovary Father Hypertension Family history of coronary artery disease Mother Cerebrovascular accident Dementia Social History Social History Smoking status: Never smoker Second hand tobacco smoke exposure: No Alcohol intake: never Substance use: never Substance use type: does not use Lack of Transportation: No Lack of Food: Never True Current Housing: I Have Housing Concerned About Future Housing: No Difficulty Paying Gas/Electric Bills: No Difficulty Paying for Meds: No Currently Unemployed: No Education: High School Diploma/GED Difficulty w/ Childcare or Family Care: No Living arrangements: with family 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 There is no relevant family history pertinent to the presenting complaint Exam Narrative: GENERAL: Well-appearing, well-nourished, and in no acute distress. HEAD: Normocephalic, atraumatic. EYES: PERRLA and EOMI. No nystagmus. Mild subconjunctival hematoma noted to the right inner canthus, right conjunctivae mildly injected. Upper and lower eyelid unremarkable, no periorbital edema noted ENT: Nares clear, turbinates pink, no rhinorrhea or epistaxis. Mucous membranes moist. TM pearly segura with sharp light reflex bilaterally; no tragal tenderness. NECK: Supple. CHEST: No respiratory distress. Speaks in full sentences. HEART: Regular rate and rhythm. SKIN: Warm, dry, no visible rash. NEURO: Alert and oriented x3. PSYCH: Normal mood and affect Course Course Emergency Course: Patient is aware of diagnosis, understands and agrees to treatment plan. Anticipatory guidance given. Patient agrees to follow-up as directed and is aware of reasons to seek care at the emergency department. Portions of this record may have been created with voice recognition software Level of Care: Express Care Visit Vital Signs Vital signs: Reviewed. MDM - Eye Problem MDM Narrative Medical decision making narrative: Consideration of the following conditions may be warranted for the presenting problem, they are not final diagnoses: Bacterial conjunctivitis, allergic conjunctivitis, viral conjunctivitis, foreign body, blepharitis, chalazion, hordeolum, corneal abrasion, preseptal cellulitis, orbital cellulitis. No evidence of proptosis, ophthalmoplegia, vision loss, pain with eye movement. Symptoms are likely related to subconjunctival hematoma, however since conjunctiva is mildly injected and patient was experiencing some lower lid tenderness, I will prescribe prophylactic eye drops. Exam findings show no acute concerns or changes; patient is non-toxic appearing and is in no distress. Patient is appropriate for outpatient treatment and follow-up. Critical Care Time Critical Care Time Critical Care Time: No Discharge Plan Discharge Clinical Impression: Subconjunctival hematoma Patient Disposition: Home Condition: Stable Instructions: How to Use Eye Drops (ED) Additional Instructions: Do not touch or rub your eye. Use a cool washcloth on your eye for comfort Use eyedrops as directed You may take Tylenol or ibuprofen for pain Follow-up with PCP or instructor physical if condition is not improving in 2-3 days. Go to the emergency room if you have pain behind your eye, pressure behind your eye, difficulty seeing, or other severe symptoms Patient Language: Solomon Islander Prescriptions: New polymyxin B sulf-trimethoprim 10,000 unit- 1 mg/mL drops 1 drp RIGHT EYE Q3H 7 Days Qty: 10 0RF Rx Instructions: while awake; do not exceed 6 doses in 24 hours No Action hydrochlorothiazide 12.5 mg tablet 12.5 mg PO DAILY Qty: 90 1RF amlodipine 5 mg tablet 5 mg PO DAILY Qty: 90 1RF Rx Instructions: TAKE 1 TABLET BY MOUTH DAILY Follow-up/Referrals: PHYSICIAN NOT ON STAFF,NONSTAFF [Primary Care Provider] - Time of Disposition: 20:08
--- OUTSIDE RECORDS SUMMARY | 2024-11-04 19:50 | XMS_ITS | Clinical Summary ---
Author Organization [facility] Address [address] [place] [address] Care Team Providers Care Concrete Spreader Name Role Phone Rosanna Gibbs MD Primary Care Provider [phone] Source Comments [facility],non-owned Affiliates and Associated Physician Practices is amultiple site organization consisting of ambulatory clinics and hospital sitesin [place], [place], [place] and [place]. This disclosure is being madepursuant to the Care Everywhere program and may not contain all information available regarding this patient. Last updated 17.[facility] Health Encounters Date Type Department Care Team Description 10/31/2024 Telephone [facility] - ABNORMAL PSYCHOLOGY TEACHER [address] [place] [address] Elvis Ward MD Reminder Call 09/27/2024 Travel from Last 3 Months Social History Tobacco Use Types Packs/Day Years Used Date Smoking Tobacco: Never Assessed Comments Unknown Sex and Gender Information Value Date Recorded Sex Assigned at Not on file Legal Sex Female 10:42 AM CDT Gender Identity Not on file Sexual Orientation Not on file Plan of Treatment Upcoming Encounters Date Type Department Care Team (Late st Contact Info) Description 11/05/2024 9:00 AM CDT Office Visit [facility] - ABNORMAL PSYCHOLOGY TEACHER [address] [place] [address] Elvis Ward MD [address] [place] [address] Health Maintenance Due Date Last Done Comments BONE DENSITY TESTING 1954 COLOGUARD (AGES 45-75) - COL ON CA SCREENING 1954 COLON MONITORING 1954 COLONOSCOPY - COLON CA SCREENING 1954 CT COLONOGRAPHY - COLON CA SCREENING 1954 Colorectal Cancer Screening 1954 FIT - COLON CA SCREENING 1954 FLEX SIG - COLON CA SCREENING 1954 LIPID TESTING 1954 MAMMOGRAM 1954 MEDICARE AWV 12 MONTHS 1954 HEPATITIS C SCREENING 04/23/1972 DTAP/TDAP/TD VACCINES (1 - Tdap) 1973 PNEUMOCOCCAL VACCINE 50+ (1 of 1 - PCV) 2004 ZOSTER VACCINE (1 of 2) 2004 COVID-19 VACCINE (4 - 2023-2 5 season) 2023 03/27/2021, 06/27/2020, 06/06/2020 DEPRESSION SCREENING 04/10/2024 INFLUENZA VACCINE (#1) 2024 Respiratory Syncytial Virus (RSV) Vaccine Pt: or over 60 yrs (1 - 1-dose 75+ series) 2029 HEPATITIS B VACCINE Aged Out No longe r eligible based on patient's age to complete this topic HIB VACCINE Aged Out No longer eligi ble based on patient's age to complete this topic HPV VACCINE Aged Out No longer eligi ble based on patient's age to complete this topic MENINGOCOCCAL (Group B) VACCINE SHARED DECISION-MAKING Aged Out No longer eligible based on patient's age to complete this topic MENINGOCOCCAL GROUPS A/C/Y/W VACCINE Aged Out No longer eligible b ased on patient's age to complete this topic Insurance MEDICARE [facility] [place] [address] Care Teams Concrete Spreader Relationship Specialty Start Date End Date Rosanna Gibbs MD [address] [address] PCP - General Obstetrics and Gynecology 09/27/24
[2024-11-04 20:00] VITALS: BP 180/93; PULSE 95; RESP 18; TEMP 36.6; O2SAT 99
== END 2024-11-04 20:10 | disposition home or self-care (01) ==
PROVIDERS: Emergency Provider Nurse Practitioner
DX: H11.31 Conjunctival hemorrhage, right eye (principal)
CPT/HCPCS: 99213; G0463

== ENCOUNTER 2024-11-26 21:49 | Emergency (ER) | payer MEDICARE, OTHER, SELFPAY ==
[2024-11-26 21:55] VITALS: BP 164/99; PULSE 88; RESP 16; TEMP 36.8; O2SAT 97
--- OUTSIDE RECORDS SUMMARY | 2024-11-27 00:06 | XMS_ITS | Clinical Summary ---
Author Organization [facility] Address [address] [place] [address] Care Team Providers Care Set O Type Operator Name Role Phone Rosanna Gibbs MD Primary Care Provider [phone] Source Comments [facility],non-owned Affiliates and Associated Physician Practices is amultiple site organization consisting of ambulatory clinics and hospital sitesin [place], [place], [place] and [place]. This disclosure is being madepursuant to the Care Everywhere program and may not contain all information available regarding this patient. Last updated 17.[facility] Allergies No known active allergies Medications * Be aware that medications may not be up to date on this document. Alwaysverify current medications with the patient. amLODIPine (Norvasc) 5 MG tablet Take 1 (one) tablet by mouth once daily 09/11/2024 Active hydroCHLOROthia zide 12.5 MG Take 1 (one) tablet by mouth once daily 09/11/2024 Active vitamin D3 (Cholecalcifero l) 10 MCG (400 UNIT) tablet Take 1 (one) tablet by mouth once daily Active zinc sulfate (Zincate) 220 (50 ZN) MG capsule Take 1 (one) capsule by mouth once daily Active Encounters Date Type Department Care Team Description 11/13/2024 Telephone [facility] - ASP DEVELOPER [address] [place] [address] Elvis Ward MD Request Lab Order 11/08/2024 Telephone [facility] - ASP DEVELOPER [address] [place] [address] Elvis Ward MD Surgery Scheduling 11/05/2024 9:00 AM CDT Office Visit [facility] - ASP DEVELOPER [address] [place] [phone] Elvis Ward MD Complete uterovaginal prolapse (Primary Dx); Cystocele, midline; Rectocele; Stress incontinence; Urge incontinence 11/05/2024 Travel 10/31/2024 Telephone [facility] - ASP DEVELOPER [address] [facility] [address] [place] [address] Elvis Ward MD Reminder Call 09/27/2024 Travel from Last 3 Months Family History Medical History Relation Name Comments Depression Maternal Grandmother Diabetes; unknown type Maternal Grandmother Depression Mother Relation Name Status Comments Maternal Grandmother Mother Social History Tobacco Use Types Packs/Day Years Used Date Smoking Tobacco: Never Passive Smoke Exposure: Never Smokeless Tobacco: Never Tobacco Cessation:Counseling Given: No Alcohol Use Standard Drinks/Week Comments Never 0 (1 standard drink = 0.6 oz pur e alcohol) Comments Unknown Sex and Gender Information Value Date Recorded Sex Assigned at Not on file Legal Sex Female 10:42 AM CDT Gender Identity Not on file Sexual Orientation Not on file Last Filed Vital Signs Vital Sign Reading Time Taken Comments Blood Pressure 130/80 11/05/2024 8:38 AM CDT Pulse - - Temperature - - Respiratory Rate - - Oxygen Saturation - - Inhaled Oxygen Concentration - - Weight - - Height 157.5 cm (5' 2) 11/05/2024 8:38 AM CDT Body Mass Index - - Plan of Treatment Upcoming Encounters Date Type Department Care Team (Late st Contact Info) Description 12/23/2024 2:45 PM CDT Office Visit [facility] - ASP DEVELOPER [address] [facility] [address] [place] [address] Elvis Ward MD [address] [facility] [address] [place] [address] 03/10/2025 11:30 AM INTELLIGENCE RESEARCH SPECIALIST Office Visit [facility] - ASP DEVELOPER [address] [place] [phone] Elvis Ward MD [address] [facility] [address] [place] [address] Health Maintenance Due Date Last Done Comments BONE DENSITY TESTING 1954 COLOGUARD (AGES 45-75) - COL ON CA SCREENING 1954 COLON MONITORING 1954 COLONOSCOPY - COLON CA SCREENING 1954 CT COLONOGRAPHY - COLON CA SCREENING 1954 Colorectal Cancer Screening 1954 FIT - COLON CA SCREENING 1954 FLEX SIG - COLON CA SCREENING 1954 MAMMOGRAM 1954 MEDICARE AWV 12 MONTHS 1954 HEPATITIS C SCREENING 04/23/1972 DTAP/TDAP/TD VACCINES (1 - Tdap) 1973 PNEUMOCOCCAL VACCINE 50+ (1 of 1 - PCV) 2004 ZOSTER VACCINE (1 of 2) 2004 LIPID TESTING 07/30/2021 07/30/2016, 07/30/2016 COVID-19 VACCINE (4 - 2023-2 5 season) [...] age to complete this topic Insurance MEDICARE [facility] [place] [id number] Care Teams Set O Type Operator Relationship Specialty Start Date End Date Rosanna Gibbs MD [address] [address] PCP - General Obstetrics and Gynecology 09/27/24
== END 2024-11-26 22:00 | disposition left against medical advice (07) ==
LOC: ANHED 11-27 00:05
PROVIDERS: PCP Family Medicine
DX: R51.9 Headache, unspecified (principal)
CPT/HCPCS: 99199

== ENCOUNTER 2024-11-27 18:24 | Emergency (ER) | payer MEDICARE, OTHER, SELFPAY ==
--- OUTSIDE RECORDS SUMMARY | 2024-11-27 18:26 | XMS_ITS ---
Author Organization Unknown ENCOUNTERS Encounter Performer Location Date Diagnosis Diagnosis Status Emergency EMERGENCY ROOM PHYSICIAN [facility] [address] [place] [address] [id number] [facility] [address] [place] [address] [id number] [facility] Out[facility] [address] [place] [address] [id number] [facility] Outpatient [facility] [address] [place] [address] [id number] [facility] Outpatient [facility] [address] [place] [address] [id number] [facility] Outpatient [facility] [address] [place] [address] [id number] [facility] Outpatient [facility] [address] [place] [address] [id number] [facility] Emergency [facility] [address] [place] [address] [id number] JULIO *Note: Encounters from your own facility or health system may be excluded. Allergies, Adverse Reactions, Alerts Allergen Type Severity Identification Date prochlorperazine drug allergy 4 [id number] Medications Name Date Quantity Days Supplied GPI Number
--- OUTSIDE RECORDS SUMMARY | 2024-11-27 18:26 | XMS_ITS | Clinical Summary ---
Author Organization [facility] [employer] Address [address] [place] [address] Care Team Providers Care Strap Making Machine Operator Name Role Phone Rosanna Gibbs MD Primary Care Provider [phone] Source Comments [facility] [employer],non-owned Affiliates and Associated Physician Practices is amultiple site organization consisting of ambulatory clinics and hospital sitesin [place], [place], [place] and [place]. This disclosure is being madepursuant to the Care Everywhere program and may not contain all information available regarding this patient. Last updated 17.[facility] [employer] Allergies No known active allergies Medications * [...] Description 11/13/2024 Telephone [facility] - PARACHUTE MANUFACTURING SUPERVISOR [address] [place] [address] Elvis Ward MD Request Lab Order 11/08/2024 Telephone [facility] - PARACHUTE MANUFACTURING SUPERVISOR [address], [address] [place] [address] Elvis Ward MD Surgery Scheduling 11/05/2024 9:00 AM CDT Office Visit [facility] - PARACHUTE MANUFACTURING SUPERVISOR [address] [place] [phone] Elvis Ward MD Complete uterovaginal prolapse (Primary Dx); Cystocele, midline; Rectocele; Stress incontinence; Urge incontinence 11/05/2024 Travel 10/31/2024 Telephone [facility] - PARACHUTE MANUFACTURING SUPERVISOR [address] [facility] [address] [place] [address] Elvis Ward MD Reminder Call [...] CDT Office Visit [facility] - PARACHUTE MANUFACTURING SUPERVISOR [address] [facility] [address] [place] [address] Elvis Ward MD [address] [facility] [address] [place] [address] 03/10/2025 11:30 AM CRITICAL CARE PHYSICIAN ASSISTANT Office Visit [facility] - PARACHUTE MANUFACTURING SUPERVISOR [address] [place] [phone] Elvis Ward MD [address] [facility] [address] [place] [address] Health Maintenance Due Date Last [...] age to complete this topic Insurance MEDICARE [facility] [place] [id number] Care Teams Strap Making Machine Operator Relationship Specialty Start Date End Date Rosanna Gibbs MD [address] [address] PCP - General Obstetrics and Gynecology 09/27/24
--- OUTSIDE RECORDS SUMMARY | 2024-11-27 18:26 | XMS_ITS | Encounter Summary ---
Author Organization [facility] Address [facility] [place] [address] Care Team Providers Care Plant Guard Name Role Phone Rosanna Gibbs MD Primary Care Provider [phone] Reason for Visit * Reason Onset Date Comments Surgery Scheduling 11/08/2024 Encounter Details Date Type Department Care Team (Late Contact Info) Description 11/08/2024 Telephone [facility] - REPRODUCTION ORDER PROCESSOR [address] [address] Elvis Ward MD [address] [facility] [address] [place] [phone] Surgery Scheduling Social History Tobacco Use Types Packs/Day Years Used Date Smoking Tobacco: Never Passive Smoke Exposure: Never Smokeless Tobacco: Never Alcohol Use Standard Drinks/Week Comments Never 0 (1 standard drink = 0.6 oz pur e alcohol) Comments Unknown Sex and Gender Information Value Date Recorded Sex Assigned at Not on file Legal Sex Female 10:42 AM CDT Gender Identity Not on file Sexual Orientation Not on file documented as of this encounter Miscellaneous Notes * Telephone Encounter - Esthela Alarcon - 11/08/2024 9:38 AM CDT Left message for patient to schedule surgery Call Betty [phone] documented in this encounter Plan of Treatment Upcoming Encounters Date Type Department Care Team (Late Contact Info) Description 12/23/2024 2:45 PM CDT Office Visit [facility] - REPRODUCTION ORDER PROCESSOR [address] [place] [phone] Elvis Ward MD [address] [facility] [address] [place] [address] 03/10/2025 11:30 AM VISITOR SERVICE ASSISTANT Office Visit [facility] - REPRODUCTION ORDER PROCESSOR [address], [facility] [address] [place] [address] Elvis Ward MD [address] [facility] [address] [place] [address] documented as of this encounter Visit Diagnoses Not on filedocumented in this encounter Care Teams Plant Guard Relationship Specialty Start Date End Date Rosanna Gibbs MD [address] [facility] [address] [place] [address] PCP - General Obstetrics and Gynecology 09/27/24 documented as of this encounter
[2024-11-27 18:29] VITALS: BP 168/83; PULSE 85; RESP 16; TEMP 36.4; O2SAT 98
--- NOTE | 2024-11-27 18:34 | ED.GENADULT ---
HPI - General Adult General Chief complaint: Unspecified Stated complaint: concerns Time Seen by Provider: 11/27/24 18:35 Source: patient and RN notes reviewed Mode of arrival: ambulatory Limitations: no limitations History of Present Illness HPI narrative: 69 y/o female with hx HTN presented for c/o left cheek 'tingling.' Onset 3 days. States today while getting her hair done she thought the left side of the face appeared to droop. Also states she has 'not felt well' for about 3 weeks. Says she has been taking a steroid for sinus and head congestion as prescribed by pcp, which she finished today. Says the steroid elevated her BP, so she is taking additional BP medication PRN. Pt also admits to occasional palpitations, and states she has noticed her fitbit reading HR 140s briefly for the past 5 days, starting the day after she was seen by pcp. Endorses concern for stroke. Denies difficulty speaking, confusion, CHAIREZ, vision changes, dizziness, numbness, tingling or weakness of the extremities, sob, chest pain, n/v/d/f/c. Related Data Allergies Allergy/AdvReac Type Severity Reaction Status Date / Time prochlorperazine (From AdvReac Severe claustropho Verified 11/27/24 18:38 Compazine) christopher Review of Systems Review of Systems: CONSTITUTIONAL: Denies body aches, fever, chills, or sweats. EYES: Denies visual changes, redness, or discharge. ENT: Denies rhinorrhea, congestion, sore throat, or otalgia. CARDIOVASCULAR: Reports palpitations Denies chest pain, or edema. RESPIRATORY: Denies cough or dyspnea. GASTROINTESTINAL: Denies abdominal pain, nausea, vomiting, or diarrhea. MUSCULOSKELETAL: Denies back pain, joint pain, or myalgia. NEUROLOGIC: Reports left cheek tingling sensation Denies headache, numbness, weakness, dizziness PSYCH: Denies depression or anxiety. All systems reviewed & are unremarkable except as noted in HPI and below PMFSH Past Medical History Medical History History of kidney stones C. difficile colitis Hepatitis C antibody test negative (08/18/18) Prediabetes Uterine polyp Kidney stone (~2008) Kidney stone (~1989) Surgical History Surgical History Closed fracture of right distal radius Application external fixator April 08, 2022 History of breast augmentation (~1983) History of colonoscopy (~04/20/09) Family History Family History Grandparent Diabetes mellitus Cerebrovascular accident Family history of lung cancer Family history of malignant neoplasm of ovary Father Hypertension Family history of coronary artery disease Mother Cerebrovascular accident Dementia Social History Social History Smoking status: Never smoker Second hand tobacco smoke exposure: No Alcohol intake: never Substance use: never Substance use type: does not use Lack of Transportation: No Lack of Food: Never True Current Housing: I Have Housing Concerned About Future Housing: No Difficulty Paying Gas/Electric Bills: No Difficulty Paying for Meds: No Currently Unemployed: No Education: High School Diploma/GED Difficulty w/ Childcare or Family Care: No Living arrangements: with family 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 Please see nursing chart for further information. There is no relevant family history pertinent to the presenting complaint Exam Narrative: GENERAL: Well-appearing, well-nourished HEAD: Normocephalic, atraumatic. EYES: PERRLA, EOMI. ENT: Mucous membranes pink and moist. No rhinorrhea. NECK: Normal AROM. Supple. No lymphadenopathy. CHEST: No respiratory distress. Clear to auscultation. HEART: Regular rate and rhythm. No murmur appreciated. Normal peripheral pulses. ABDOMEN: Soft, nontender, nondistended, normal active bowel sounds. EXTREMITIES: Normal range of motion. No edema. SKIN: Warm, dry, no rash. Capillary refill normal. Normal skin turgor. NEURO:No focal deficits. Alert and oriented x3. EOMs intact without nystagmus. No facial droop/asymmetry noted bilaterally. Grimace intact. Intact sensation in face. Hearing intact bilaterally. Shoulder shrug intact. Strength 5/5 bilateral upper extremities. Strength 5/5 bilateral lower extremities. Ambulatory exam with a normal based, steady gait. PSYCH: Normal affect. Tearful and anxious at times. Course Course Emergency Course: Patient is aware of diagnosis, understands and agrees to treatment plan. Anticipatory guidance given. Patient agrees to follow-up as directed and is aware of reasons to seek care at the emergency department. Portions of this record may have been created with voice recognition software Level of Care: Express Care Visit Vital Signs Vital signs: Vital Signs Temperature 97.6 F 11/27/24 18:29 Pulse Rate 85 11/27/24 18:29 Respiratory Rate 16 11/27/24 18: Blood Pressure 168/83 H 11/27/24 18:29 Pulse Oximetry 98 11/27/24 18:29 Oxygen Delivery Room Air 11/27/24 18: Temperature 97.6 F 11/27/24 18: Pulse Rate 85 11/27/24 18: Respiratory Rate 16 11/27/24 18: Blood Pressure 168/83 H 11/27/24 18:29 Pulse Oximetry 98 11/27/24 18:29 Oxygen Delivery Room Air 11/27/24 18:29 Medical Decision Making MDM Narrative Medical decision making narrative: Discussed physical exam findings, BP mildly elevated, she states she did not take her prn dose of medication. BP rechecked 139/63. Neuro exam unremarkable. Shared decision making, pt is not currently experiencing palpitations in clinic, HR is WNL and regular per auscultation. Discussed at length risks of elevated HR and possible etiologies. she will contact her pcp in the morning for further evaluation. Advised supportive measures and signs/symptoms to go to the ER at length. Pt is appropriate for outpt treatment and f/u. Differential Diagnosis Differential Diagnosis: STEMI, AAA, PE, pneumothorax, cardiac tamponade, esophageal rupture, pneumonia, GERD, musculoskeletal pain, endocarditis, pericarditis, URI, bronchitis, CVA, anxiety Vital Signs Vital Signs: Vital Signs Temperature 97.6 F 11/27/24 18:29 Pulse Rate 85 11/27/24 18:29 Respiratory Rate 16 11/27/24 18:29 Blood Pressure 168/83 H 11/27/24 18:29 Pulse Oximetry 98 11/27/24 18:29 Oxygen Delivery Room Air 11/27/24 18:29 Temperature 97.6 F 11/27/24 18:29 Pulse Rate 85 11/27/24 18:29 Respiratory Rate 16 11/27/24 18:29 Blood Pressure 168/83 H 11/27/24 18:29 Pulse Oximetry 98 11/27/24 18:29 Oxygen Delivery Room Air 11/27/24 18:29 reviewed Discharge Plan Discharge Clinical Impression: Palpitations Patient Disposition: Home Condition: Stable Instructions: Antibiotic Form, Heart Palpitations (ED) Additional Instructions: Your blood pressure reading was elevated (above 120/80) please follow-up with your primary care provider for further evaluation and management. If you develop worsening Blood Pressure symptoms, (headache, vision changes, dizziness, vomiting, chest pain, etc) go to the ER. Call 911. please call pcp in the morning regarding your intermittent palpitations and high heart rates on the fitbit. We discussed possible causes and effects you will need to go to the ER for any worsening symptoms Rest and stay hydrated Avoid any decongestants and/or caffeine Patient Language: Luxembourgish Prescriptions: No Action lisinopril 10 mg tablet 10 mg PO DAILY Qty: 30 0RF hydrochlorothiazide 12.5 mg tablet 12.5 mg PO DAILY Qty: 90 1RF amlodipine 5 mg tablet 5 mg PO DAILY Qty: 90 1RF Rx Instructions: TAKE 1 TABLET BY MOUTH DAILY Follow-up/Referrals: Yesenia Cohn DO [Primary Care Provider, [facility]] Quality Tisha Coma Scale Verbal: Oriented and Alert Motor: Follows Commands Acute Stroke Pre-Treatment Evaluation Acute Ischemic Stroke Pretreatment Evaluation: Acute Ischemic Stroke Pre-Treatment Evaluation Inclusion Criteria (must answer yes to questions 1 and 2) 1. Age 18 Years Or Older: No 2. Onset Of Stroke Symptoms Well Established To Be Less Than 3 Hours: No 3. Clinical Diagnosis Of Ischemic Stroke Causing Measureable Neurological Deficit And A Non-Contrast Head CT Showing NO Hemorrage: No Contraindications (0-3 Hours) 5. Stroke Or Severe Head Trauma Within Past 3 Months: No 6. Known History Of Intracranial Hemorrage: No 7. Symptoms Or Clinical Presentation Suggestion Of Subarachnoid hemorrhage: No 8. Gastrointestinal Or Urinary Tract hemorrhage Within 21 Days: No 9. Prothrombin Time (TP) Greater Than 15 Seconds or An INR Greater Than 1.7 Or An Elevated Activated Partial Throboplastin Time (aPTT): No 10. Platelet Count <100,000/ml: No 11. Glucose Lower Than 50mg/dl Or Greater than 400mg/dl: No 12. Seizure At Onset Stroke: No 13. Acute Myocardial Infarction Or Post Myocardial Infarction Pericarditis: No 14. Arterial Puncture At A Non-Compressible Site, Biopsy of Internal Organ, Within The Preceding 7 Days: No 15. Major Surgery Or Serious Trauma (Besides Head) In The Previous 14 Days: No 16. Uncontrolled Or Sustained SBP (systolic>185 mmHg) or DBP (diastolic>110 mmHg) Or Requiring Aggressive Treatment To Lower: No 17. : No Contraindications (3-4.5 Hours) 1. Age Less Than 18 or Greater Than 80 years: No 2. Severe Stroke Assessed Clinically (NIHSS Score Greater Than 25): No 3. Combination Or Previous Stroke Or Diabetes Mellitus: No 4. Symptoms Minor Or Rapidly Improving: No
[2024-11-27 19:02] VITALS: BP 139/63; PULSE 76
== END 2024-11-27 19:05 | disposition home or self-care (01) ==
PROVIDERS: Emergency Provider Nurse Practitioner Family; PCP Family Medicine
DX: R00.2 Palpitations (principal); I10 Essential (primary) hypertension; R73.03 Prediabetes
CPT/HCPCS: 82948; 99212; G0463

== ENCOUNTER 2024-12-02 12:54 | Outpatient (CLI) | payer MEDICARE, OTHER, SELFPAY ==
--- OUTSIDE RECORDS SUMMARY | 2024-12-02 13:05 | XMS_ITS | Encounter Summary ---
Author Organization [facility] Address [facility] [place] [place] [address] Care Team Providers Care Corn Miller Name Role Phone Rosanna Gibbs MD Primary Care Provider [phone] Reason for Visit * Reason Onset Date Comments Surgery Scheduling 11/08/2024 Encounter Details Date Type Department Care Team (Late Contact Info) Description 11/08/2024 Telephone [facility] - METAL FENCE ERECTOR [address] [id number] Elvis Ward MD [address] [facility] [address] [place] [phone] Surgery Scheduling Social History Tobacco Use Types [...] for patient to schedule surgery Call Betty [phone] documented in this encounter Plan of Treatment Upcoming Encounters Date Type Department Care Team (Late Contact Info) Description 12/23/2024 2:45 PM CDT Office Visit [facility] - METAL FENCE ERECTOR [address], [address] [place] [phone] Elvis Ward MD [address] [place] [address] 03/10/2025 11:30 AM AUTOMATION CONTROLS SPECIALIST Office Visit [facility] - METAL FENCE ERECTOR [address], [facility] [address] [place] [address] Elvis Ward MD [address] [place] [address] documented as of this encounter Visit Diagnoses Not on filedocumented in this encounter Care Teams Corn Miller Relationship Specialty Start Date End Date Rosanna Gibbs MD [address] [facility] [address] [place] [address] PCP - General Obstetrics and Gynecology 09/27/24 documented as of this encounter
--- OUTSIDE RECORDS SUMMARY | 2024-12-02 13:05 | XMS_ITS | Clinical Summary ---
Author Organization [facility] Address [address] [place] [address] Care Team Providers Care Refrigerator Assembler Name Role Phone Rosanna Gibbs MD Primary Care Provider [phone] [facility],non-owned Affiliates and Associated Physician Practices is amultiple site organization consisting of ambulatory clinics and hospital sitesin [place], [place], [place] and [place]. This disclosure is being madepursuant to the Care Everywhere program and may not contain all information available regarding this patient. Last updated 17.[facility] Allergies No known active allergies Medications * [...] Description 11/13/2024 Telephone [facility] - MANAGER CARE [address], [address] [place] [address] Elvis Ward MD Request Lab Order 11/08/2024 Telephone [facility] - [facility] [address], [address] [place] [address] Elvis Ward MD Surgery Scheduling 11/05/2024 9:00 AM CDT Office Visit [facility] - [facility] [address] [place] [phone] Elvis Ward MD Complete uterovaginal prolapse (Primary Dx); Cystocele, midline; Rectocele; Stress incontinence; Urge incontinence 11/05/2024 Travel 10/31/2024 Telephone [facility] - [facility] [address] [facility] [address] [place] [address] Elvis Ward MD Reminder Call [...] CDT Office Visit [facility] - [facility]NAGER CARE [address] [facility] [address] [place] [address] Elvis Ward MD [address] [facility] [address] [place] [address] 03/10/2025 11:30 AM TRANSFER AGENT Office Visit [facility] - [facility]NAGER CARE [address] [place] [phone] Elvis Ward MD [address] [facility] [address] [place] [address] Health Maintenance Due Date Last [...] age to complete this topic Insurance MEDICARE [facility] [place] [id number] Care Teams Refrigerator Assembler Relationship Specialty Start Date End Date Rosanna Gibbs MD [address] [address] PCP - General Obstetrics and Gynecology 09/27/24
--- NOTE | 2024-12-11 11:58 | WPDHOLTEREM ---
Holter/Event Monitor Holter/Event Monitor Date of procedure: 12/02/24 Holter/Event Procedure: 3-7 Day Holter Monitor Indications: Palpitations Conclusion: 1. 3 days holter monitor on 12/02/24. 2. Predominant rhythm is sinus rhythm. HR range 51-154 bpm; average HR 81 bpm. 3. There are rare premature supraventricular complexes, rare supraventricular couplets, and rare supraventricular triplets. There are 5 episodes of supraventricular tachycardia, fastest at 154 bpm and longest lasting 9 beats. 4. There are rare premature ventricular complexes. No ventricular tachycardia. 5. No significant pauses greater than 3 seconds. 6. Patient reports 11 episodes of symptoms of heart fluttering, shortness of breath which demonstrate sinus rhythm, HR range 62-103 bpm with 2 episodes with PAC's and 1 episode with PVC.
== END 2024-12-02 12:55 | disposition home or self-care (01) ==
PROVIDERS: PCP Family Medicine; Visit Provider Family Medicine
DX: R00.2 Palpitations (principal)
CPT/HCPCS: 93242